=== PATIENT | female | born 1950 | race Caucasian/White ===

== ENCOUNTER 2017-11-13 11:33 | Outpatient (CLI) | payer MEDICARE | END 2017-11-13 11:34 | disposition home or self-care (01) | LOC: CTENTCT 11:33 | PROVIDERS: ATTEND Otolaryngology Plastic Surgery within the Head & Neck | DX: J32.9 Chronic sinusitis, unspecified (principal) | CPT/HCPCS: 70486 ==

== ENCOUNTER 2020-10-05 14:57 | Outpatient (CLI) | payer MEDICARE | END 2020-10-05 14:58 | disposition home or self-care (01) | LOC: BICMAMMO 14:57 | PROVIDERS: ATTEND Physician Assistant | DX: Z12.31 Encounter for screening mammogram for malignant neoplasm of breast (principal); M81.0 Age-related osteoporosis without current pathological fracture; M85.852 Other specified disorders of bone density and structure, left thigh; Z91.89 Other specified personal risk factors, not elsewhere classified | CPT/HCPCS: 77063; 77067; 77080 ==

== ENCOUNTER 2021-01-24 09:49 | Outpatient (CLI) | payer OTHER | END 2021-01-24 09:50 | disposition home or self-care (01) | LOC: DTY/OP 09:49 | PROVIDERS: ATTEND Physician Assistant | DX: E78.2 Mixed hyperlipidemia (principal) | CPT/HCPCS: 97802 ==